=== PATIENT | female | born 1965 ===

== ENCOUNTER → 2025-06-24 | Outpatient (REF) | payer OTHER ==
[~2025-06-24] MED LIST: CVSTAB PO; DULO1CAP6 PO; HYDR12.510 PO; PRAV20TA78 PO; VALA500T5 PO
[2025-06-24 15:23] LABS: TOTAL 25(OH) VITAMIN D 29.2 NG/ML (20.0-100.0)
[2025-06-24 15:38] LABS: ALT/SGPT 13.0 U/L (7.0-40); AST/SGOT 18.0 U/L (<34); CALCIUM LEVEL 9.5 MG/DL (8.5-10.1); CARBON DIOXIDE LEVEL 29.0 MMOL/L (20-31); CHLORIDE LEVEL 104.0 MMOL/L (98-107); CHOLESTEROL LEVEL 235.0 MG/DL (<200); CHOLESTEROL RISK RATIO 3.87 (<5); CREATININE FOR GFR 0.82 MG/DL (0.55-1.30); GLOMERULAR FILTRATION RATE 83.4 (>51); LDL CHOLESTEROL 146.8 MG/DL (<100); NON-HDL-C 174.4 MG/DL; POTASSIUM SERUM 4.5 MMOL/L (3.5-5.1); SODIUM LEVEL 145.0 MMOL/L (136-145); TRIGLYCERIDES LEVEL 138.0 MG/DL (<150)
== END ==
LOC: M LAB REF 14:18
PROVIDERS: ATTEND Student in an Organized Health Care Education/Training Program
DX: M35.3 Polymyalgia rheumatica (principal); I10 Essential (primary) hypertension; Z68.36 Body mass index [BMI] 36.0-36.9, adult